=== PATIENT | male | born 1960 | race Caucasian/White ===

== ENCOUNTER 2019-05-24 09:20 | Inpatient (IN) | payer OTHER ==
[2019-05-17 10:32] LABS: ABSOLUTE EOSINOPHILS # (AUTO) 0.1 10^3/uL (0.0-0.6); ABSOLUTE LYMPHOCYTES (AUTO) 1.4 10^3/uL (0.5-4.7); ABSOLUTE MONOCYTES (AUTO) 0.4 10^3/uL (0.1-1.4); ABSOLUTE NEUT (AUTO) 2.7 10^3/uL (1.7-8.2); BASOPHILS % (AUTO) 0.9 % (0-2); EOSINOPHILS % (AUTO) 2.6 % (0-6); HEMATOCRIT 44.5 % (37.9-51.0); HEMOGLOBIN 15.1 g/dL (13.5-17.0); LYMPHOCYTES % (AUTO) 29.2 % (13-45); MEAN CORPUSCULAR HEMOGLOBIN 29.4 pg (27.0-33.4); MEAN CORPUSCULAR HGB CONC 33.9 g/dL (32.0-36.0); MEAN CORPUSCULAR VOLUME 87 fl (80-97); MONOCYTES % (AUTO) 9.4 % (3-13); PLATELET COUNT 238 10^3/uL (150-450); RED BLOOD COUNT 5.14 10^6/uL (4.35-5.55); RED CELL DISTRIBUTION WIDTH 13.7 % (11.5-14.0); SEGMENTED NEUTROPHILS % (AUTO) 57.9 % (42-78); TOTAL CELLS COUNTED % (AUTO) 100 %; WHITE BLOOD COUNT 4.6 10^3/uL (4.0-10.5)
[2019-05-17 11:01] LABS: ANION GAP 10 (5-19); BLOOD UREA NITROGEN 15 mg/dL (7-20); CALCIUM 9.5 mg/dL (8.4-10.2); CARBON DIOXIDE 26 mmol/L (22-30); CHLORIDE 105 mmol/L (98-107); GLUCOSE 134 mg/dL (75-110); POTASSIUM 4.5 mmol/L (3.6-5.0)
--- NOTE | 2019-05-18 18:42 | EKG REPORT ---
SEVERITY:- NORMAL ECG - SINUS RHYTHM : Confirmed by: Oumar Ramirez MD 18-May-2019 18:42:21
[~2019-05-24 09:20] MED LIST: CEFAZOLIN 1 GM/D5W RTU 1 GM/50 ML RTUPB IV PRN; LACTATED RINGERS 1000 ML IV PRN; LIDOCAINE 0.5% INJ-PF (5 MG/ML) 50 ML SDV SUBCUT PRN; METRONIDAZOLE 500 MG/NS RTU 500 MG/100 ML RTUPB IV PRN
[2019-05-24] MEDS ORDERED: SUCCINYLCHOLINE CHLORIDE INJ 200 MG/10 ML VIAL ONE (09:34)
[2019-05-24] MEDS ORDERED: ROCURONIUM BROMIDE INJ 50 MG/5 ML VIAL IV ONE (09:34)
[2019-05-24] MEDS ORDERED: LIDOCAINE 2% INJ-PF (20 MG/ML) 2 ML AMPUL ONE (09:34)
[2019-05-24] MEDS ORDERED: CEFAZOLIN 1 GM/D5W RTU 0 GM/0 ML RTUPB IV ONE (12:21)
[2019-05-24] MEDS ORDERED: METRONIDAZOLE 500 MG/NS RTU 500 MG/100 ML RTUPB IV ONE (12:21)
[2019-05-24] MEDS ORDERED: CEFAZOLIN INJ 1 GM VIAL ONE (12:22)
[2019-05-24] MEDS ORDERED: MORPHINE SULFATE 10 MG/ML INJ ONE (14:29)
[2019-05-24] MEDS ORDERED: FENTANYL CITRATE INJ/PF 250 MCG/5 ML AMPULE ONE (14:29)
[2019-05-24] MEDS ORDERED: MIDAZOLAM 2 MG/2 ML INJ ONE (14:29)
[2019-05-24] MEDS ORDERED: PROPOFOL INJ 200 MG/20 ML VIAL IV ONE ×2 (14:30→15:16)
[2019-05-24] MEDS ORDERED: BUPIVACAINE HCL 0.25% /EPINEPHRINE INJ/PF 30 ML SDV ONE (14:33)
[2019-05-24] MEDS ORDERED: CEFAZOLIN 1 GM/D5W RTU 1 GM/50 ML RTUPB IV ONE (15:00)
[2019-05-24] MEDS ORDERED: ESMOLOL HCL INJ/PF 100 MG/10 ML SDV IV ONE ×2 (15:21→18:17)
[2019-05-24] MEDS ORDERED: EPHEDRINE SULFATE INJ 50 MG/1 ML AMPULE ONE (16:05)
[2019-05-24] MEDS ORDERED: SUGAMMADEX SODIUM 200 MG/2 ML SDV IV ONE (17:13)
[2019-05-24] MEDS ORDERED: PROMETHAZINE HCL INJ 25 MG/1 ML VIAL IV PRN ×2 (17:33)
[2019-05-24] MEDS ORDERED: MEPERIDINE HCL/PF INJ 25 MG/1 ML DISP.SYRIN IV PRN (17:33)
[2019-05-24] MEDS ORDERED: DIPHENHYDRAMINE HCL 50 MG/ML VIAL IV PRN (17:33)
[2019-05-24] MEDS ORDERED: FENTANYL CITRATE INJ/PF 100 MCG/2 ML AMPUL IV PRN ×3 (17:33)
[2019-05-24] MEDS ORDERED: ONDANSETRON HCL INJ/PF 4 MG/2 ML SDV IV PRN (17:33)
--- NOTE | 2019-05-24 17:47 | Operative Report ---
Nonrecallable Operative Report DATE OF SURGERY: 05/24/19 PREOPERATIVE DIAGNOSIS: right colon polyp POSTOPERATIVE DIAGNOSIS: rt colon polyp OPERATION: rt hemicolectomy, laparoscopic SURGEON: LUCILLE LE 1ST S[employer]IOR [employer] SPECIALIST: VIOLETA CHAPIN ANESTHESIA: GA TISSUE REMOVED OR ALTERED: rt colon COMPLICATIONS: none ESTIMATED BLOOD LOSS: 50cc INTRAOPERATIVE FINDINGS: see dictation PROCEDURE: see dictation
[2019-05-24] MEDS ORDERED: DEXAMETHASONE SOD PHOS INJ 10 MG/1 ML VIAL ONE (18:10)
[2019-05-24] MEDS ORDERED: ONDANSETRON HCL INJ/PF 4 MG/2 ML SDV ONE (18:10)
[2019-05-24] MEDS ORDERED: HYDROMORPHONE HCL INJ/PF 2 MG/ML AMPULE ONE (18:25)
[2019-05-24] MEDS ORDERED: FENTANYL CITRATE INJ/PF 100 MCG/2 ML AMPUL ONE (18:25)
--- NOTE | 2019-05-24 19:20 | OPERATIVE REPORT E ---
Operative Report NAME: SHELTON ALTAMIRANO : 1960 AGE: 58Y DATE OF SURGERY: 05/24/2019 ROOM: OR PREOPERATIVE DIAGNOSIS: RIGHT COLONIC SESSILE POLYP. POSTOPERATIVE DIAGNOSIS: RIGHT COLONIC SESSILE POLYP. OPERATION: Laparoscopic-assisted right hemicolectomy. SURGEON: LUCILLE LE M.D. PRINTED CIRCUIT BOARD LAYOUT DESIGNER: Karen *------*, who was present for the entire case, for wound retraction and wound closure. PROCEDURE: Patient was brought to the operating room, awake, alert, in stable condition. Placed on the operating table in supine position. Induced under general anesthesia, intubated. The abdomen was prepped and draped in the usual sterile manner for the procedure. A Veress needle was placed into the umbilicus and the abdomen was insufflated with 6 liters of CO2 gas. A supraumbilical 10-mm incision was made with a 15 blade and a 10-mm port placed in the abdominal cavity. Intraabdominal visualization revealed no evidence of a Veress needle or trocar injury. A left lower quadrant 10-mm port placed under direct vision and a left-sided 5-mm port, all under direct vision. The cecum was identified. It was placed on traction. The appendix was identified. The peritoneal attachments between the terminal ileum, appendix and cecum were taken down with a LigaSure device. Then we came up along the ascending colon, along the peritoneal reflection with the LigaSure device, all the way to the hepatic flexure. Once this was accomplished, we mobilized the proximal transverse colon away from the omentum with the LigaSure device to free up the hepatic flexure and proximal transverse colon. Once this was accomplished and we had good mobilization of the right colon and hepatic flexure, we identified the duodenum and made sure that there was no injury to that. We then removed the LigaSure device and made a transverse incision in the right mid abdominal wall with a 15 blade, and carried out dissection out through subcutaneous tissue with Bovie cautery. The transversalis muscle and rectus fascia were divided with Bovie cautery and we used the Clifford wound protector placed into the abdominal cavity. Once the Clifford wound protector was placed, we were able to deliver the cecum and ascending colon to the wound. We came across the distal ileum with 1 firing of the TRACY stapler with a blue load. Then we came across the mesentery with multiple firings of the LigaSure device all the way past the hepatic flexure to the proximal transverse colon. We then were able to remove the specimen. We approximated the proximal transverse colon to the terminal ileum and created an ileocolostomy anastomosis using sewn technique. The outer layer was interrupted 2-0 silk and the running inner layer was 3-0 Vicryl and the anterior layer was interrupted 2-0 silk. We then reapproximated the mesenteric defect with [id number] placed 2-0 silk. We allowed the specimen to drop back into the abdominal cavity and removed the Clifford wound protector. We closed the posterior sheath with a running 0 Vicryl and the anterior sheath was closed with interrupted 0 Vicryl. Once this was accomplished, we irrigated the wound with sterile saline and suctioned dry. I then reinsufflated the abdominal cavity and identified the ileum and identified our anastomosis as well as our mesentery repair. It was intact. The anastomosis was not twisted and looked secure. We irrigated the right upper quadrant with normal saline, suctioned dry. Reduced the pneumoperitoneum. We then proceeded to close the 10-mm fascial defects at the umbilical port site and the left lower quadrant with 0 Vicryl, and then closed all skin incisions with intracuticular 4-0 Biosyn. Steri-Strips completed the procedure. Estimated blood loss was less than 50 mL. Sponge and needle counts correct x2. The patient was awakened in the operating room, extubated and transferred to recovery in stable condition. No complications. DICTATING PHYSICIAN: LUCILLE LE M.D. [id number] PHY#: [id number] ID: [id number] JOB#: [id number] ACCT: [id number] cc:LUCILLE LE M.D. >
[2019-05-24] MEDS: MORPHINE SULFATE 10 MG/ML INJ IV PRN (20:13)
[2019-05-24] MEDS: HEPARIN SOD (PORCINE) 5,000 UNIT/ML 1 ML VIAL SUBCUT SCH (21:24)
[2019-05-24] MEDS: FAMOTIDINE INJ/PF 20 MG/2 ML SDV IV SCH (21:28)
[2019-05-24] MEDS: POTASSI CL 20 MEQ/D5-1/2NS 1L 1,000 ML IV PRN (21:29)
[2019-05-25] MEDS: MORPHINE SULFATE 10 MG/ML INJ IV PRN ×3 (04:39→18:42)
[2019-05-25] MEDS: ONDANSETRON HCL INJ/PF 4 MG/2 ML SDV IV PRN ×3 (04:46→18:41)
[2019-05-25 05:17] LABS: HEMATOCRIT 42.9 % (37.9-51.0); HEMOGLOBIN 14.1 g/dL (13.5-17.0); MEAN CORPUSCULAR HEMOGLOBIN 28.9 pg (27.0-33.4); MEAN CORPUSCULAR HGB CONC 32.9 g/dL (32.0-36.0); MEAN CORPUSCULAR VOLUME 88 fl (80-97); PLATELET COUNT 228 10^3/uL (150-450); RED BLOOD COUNT 4.89 10^6/uL (4.35-5.55); RED CELL DISTRIBUTION WIDTH 13.8 % (11.5-14.0); WHITE BLOOD COUNT 11.6 10^3/uL (4.0-10.5)
[2019-05-25 05:31] LABS: ANION GAP 10 (5-19); BLOOD UREA NITROGEN 14 mg/dL (7-20); CARBON DIOXIDE 24 mmol/L (22-30); CHLORIDE 103 mmol/L (98-107); GLUCOSE 229 mg/dL (75-110); POTASSIUM 4.8 mmol/L (3.6-5.0)
[2019-05-25 05:54] LABS: ABSOLUTE LYMPHOCYTES# (MANUAL) 0.9 10^3/uL (0.5-4.7); ABSOLUTE MONOCYTES # (MANUAL) 0.5 10^3/uL (0.1-1.4); BAND NEUTROPHILS % (MANUAL) 2 % (3-5); BASOPHILS % (MANUAL) 0 % (0-2); EOSINOPHILS % (MANUAL) 0 % (0-6); LYMPHOCYTES % (MANUAL) 8 % (13-45); MONOCYTES % (MANUAL) 4 % (3-13); RBC MORPHOLOGY COMMENT NORMO-CYTIC/CHROMIC; SEGMENTED NEUTROPHILS % (MAN) 86 % (42-78); TOTAL CELLS COUNTED 100
[2019-05-25 05:55] LABS: PLATELET COMMENT ADEQUATE
[2019-05-25] MEDS: HEPARIN SOD (PORCINE) 5,000 UNIT/ML 1 ML VIAL SUBCUT SCH ×3 (05:57→22:42)
[2019-05-25] MEDS: POTASSI CL 20 MEQ/D5-1/2NS 1L 1,000 ML IV PRN ×2 (05:57→16:46)
--- NOTE | 2019-05-25 07:51 | PDOC PROGRESS REPORT ---
Subjective Progress Note for:: 05/25/19 Reason For Visit: RIGHT COLONIC MASS Physical Exam Vital Signs: Temp Pulse Resp BP Pulse Ox 97.6 F 77 17 157/83 H 96 05/25/19 02:58 05/25/19 02:58 05/25/19 02:58 05/25/19 02:58 05/25/19 02:58 Intake & Output 05/24/19 05/25/19 05/26/19 06:59 06:59 06:59 Intake Total 3650 Output Total 1100 Balance 2550 Weight 113 kg General appearance: PRESENT: no acute distress Head exam: PRESENT: normocephalic Eye exam: PRESENT: EOMI Mouth exam: PRESENT: moist Neck exam: PRESENT: full ROM Respiratory exam: PRESENT: unlabored Cardiovascular exam: PRESENT: RRR Pulses: PRESENT: +2 pedal pulses bilateral GI/Abdominal exam: PRESENT: soft Rectal exam: PRESENT: deferred Extremities exam: PRESENT: full ROM Musculoskeletal exam: PRESENT: full ROM Neurological exam: PRESENT: alert, awake, oriented to person, oriented to place Psychiatric exam: PRESENT: agitated, appropriate affect Skin exam: PRESENT: dry Results Laboratory Results: 05/25/19 04:23 05/25/19 04:23 05/25/19 05/25/19 04:23 04:23 WBC 11.6 H RBC 4.89 Hgb 14.1 Hct 42.9 MCV 88 MCH 28.9 MCHC 32.9 RDW 13.8 Plt Count 228 Seg Neutrophils % Not Reportable Lymphocytes % Not Reportable Monocytes % Not Reportable Eosinophils % Not Reportable Basophils % Not Reportable Absolute Neutrophils Not Reportable Absolute Lymphocytes Not Reportable Absolute Monocytes Not Reportable Absolute Eosinophils Not Reportable Absolute Basophils Not Reportable Sodium 136.9 L Potassium 4.8 Chloride 103 Carbon Dioxide 24 Anion Gap 10 BUN 14 Creatinine 1.25 Est GFR ( Amer) > 60 Est GFR (Non-Af Amer) > 60 Glucose 229 H Calcium 9.0 Assessment & Plan - Plan Summary Plan Summary: s/p lap rt hemicolectomy 'this am doing well no complaints swallowing well no resp issues plan due to difficult intubation, will order ct of the neck per anesthesia request. cont clear liquids.
--- NOTE | 2019-05-25 09:40 | RADIOLOGY REPORT (SQ) ---
EXAM DESCRIPTION: CT SOFT TISSUE NECK WITHOUT COMPLETED DATE/TIME: 05/25/2019 9:25 am REASON FOR STUDY: difficult intubation D12.0 BENIGN NEOPLASM OF CECUM COMPARISON: None. TECHNIQUE: Noncontrast scanning from skull base through lung apices with review of bone, soft tissue and lung windows. Reconstructed coronal and sagittal MPR images reviewed. All images stored on PAC S. All CT scanners at this facility use dose modulation, iterative reconstruction, and/or weight based d osing when appropriate to reduce radiation dose to as low as reasonably achievable (ALARA). [facility]: Dose Right [facility]: CareDose [facility]: Dose Right [facility]: Teradose 4D [facility]: Swag Of The Month RADIATION DOSE: mGy. LIMITATIONS: None. FINDINGS: SKULL BASE: Intact. MAJOR SALIVARY GLANDS: No solid or cystic masses. No inflammatory changes. LYMPHADENOPATHY: There are scattered small cervical nodes most likely reactive. MUCOSAL MASSES OR ASYMMETRY: No mucosal masses or asymmetry. LARYNX/CORDS: No abnormal findings. LUNG APICES: Clear. BONES: Intact. THYROID: Normal size. No masses. PARANASAL SINUSES: Clear. OTHER: No other significant finding. IMPRESSION: NO SIGNIFICANT FINDING IN THE SOFT TISSUES OF THE NECK. TECHNICAL DOCUMENTATION: JOB ID: [id number] Quality ID # [id number]: Final reports with documentation of one or more dose reduction techniques (e.g., Au tomated exposure control, adjustment of the mA and/or kV according to patient size, use of iterative reconstruction technique) 2010 [employer]- All Rights Reserved Reading location - IP/workstation name: [email or web address]
[2019-05-25] MEDS: FAMOTIDINE INJ/PF 20 MG/2 ML SDV IV SCH ×2 (09:49→22:42)
[2019-05-26] MEDS: MORPHINE SULFATE 10 MG/ML INJ IV PRN ×3 (00:02→19:58)
[2019-05-26] MEDS: ONDANSETRON HCL INJ/PF 4 MG/2 ML SDV IV PRN ×3 (00:09→19:58)
[2019-05-26] MEDS: POTASSI CL 20 MEQ/D5-1/2NS 1L 1,000 ML IV PRN (00:10)
[2019-05-26] MEDS: HEPARIN SOD (PORCINE) 5,000 UNIT/ML 1 ML VIAL SUBCUT SCH ×2 (05:10→14:00)
--- NOTE | 2019-05-26 07:58 | PDOC PROGRESS REPORT ---
Subjective Progress Note for:: 05/26/19 Subjective:: feels ok, no flatus Reason For Visit: RIGHT COLONIC MASS Physical Exam Vital Signs: Temp Pulse Resp BP Pulse Ox 98.6 F 83 20 130/77 H 94 05/25/19 23:43 05/25/19 23:43 05/25/19 23:43 05/25/19 23:43 05/25/19 23:43 Intake & Output 05/25/19 05/26/19 05/27/19 06:59 06:59 06:59 Intake Total 3650 6110 Output Total 1100 5070 Balance 2550 1040 Weight 113 kg 114.8 kg General appearance: PRESENT: no acute distress Head exam: PRESENT: normocephalic Eye exam: PRESENT: EOMI Mouth exam: PRESENT: moist Neck exam: PRESENT: full ROM Respiratory exam: PRESENT: clear to auscultation kristina Cardiovascular exam: PRESENT: RRR GI/Abdominal exam: PRESENT: hypoactive bowel sounds, soft Rectal exam: PRESENT: deferred Extremities exam: PRESENT: full ROM Musculoskeletal exam: PRESENT: full ROM Neurological exam: PRESENT: alert, awake, oriented to person, oriented to place Psychiatric exam: PRESENT: appropriate affect Skin exam: PRESENT: dry Results Laboratory Results: 05/25/19 04:23 05/25/19 04:23 Impressions: Soft Tissue Neck CT 05/25/19 00:00 IMPRESSION: NO SIGNIFICANT FINDING IN THE SOFT TISSUES OF THE NECK. Assessment & Plan - Plan Summary Plan Summary: s/p right hemicolectomy doing ok awaitig for return of bowel function will cont clear liquids.
[2019-05-26] MEDS: FAMOTIDINE INJ/PF 20 MG/2 ML SDV IV SCH ×2 (11:10→21:20)
[2019-05-26] MEDS: DEXTROSE 5%-1/2 NORMAL SALINE 1,000 ML IV PRN ×2 (11:22→21:31)
[2019-05-27] MEDS: HEPARIN SOD (PORCINE) 5,000 UNIT/ML 1 ML VIAL SUBCUT SCH ×3 (05:03→21:14)
[2019-05-27] MEDS: DEXTROSE 5%-1/2 NORMAL SALINE 1,000 ML IV PRN ×2 (09:09→21:21)
[2019-05-27] MEDS: FAMOTIDINE INJ/PF 20 MG/2 ML SDV IV SCH ×2 (09:09→21:20)
[2019-05-27] MEDS ORDERED: ONDANSETRON HCL INJ/PF 4 MG/2 ML SDV IV PRN (09:30)
[2019-05-27] MEDS ORDERED: MORPHINE SULFATE 10 MG/ML INJ IV PRN (09:30)
[2019-05-27] MEDS ORDERED: OXYCODONE HCL IR 5 MG TABLET PO PRN (10:51)
[2019-05-27] MEDS ORDERED: OXYCODONE-ACETAMINOPHEN 5-325 MG TABLET PO PRN (10:51)
--- NOTE | 2019-05-27 11:20 | PDOC PROGRESS REPORT ---
Subjective Progress Note for:: 05/27/19 Subjective:: feels ok, passing flatus Reason For Visit: RIGHT COLONIC MASS Physical Exam Vital Signs: Temp Pulse Resp BP Pulse Ox 98.7 F 74 15 169/83 H 94 05/27/19 08:13 05/27/19 08:13 05/27/19 08:13 05/27/19 08:13 05/27/19 08:13 Intake & Output 05/26/19 05/27/19 05/28/19 06:59 06:59 06:59 Intake Total 6110 5007 1000 Output Total 5070 5000 Balance 1040 7 1000 Weight 114.8 kg 117.2 kg General appearance: PRESENT: no acute distress Head exam: PRESENT: normocephalic Eye exam: PRESENT: EOMI Mouth exam: PRESENT: moist Neck exam: PRESENT: full ROM Respiratory exam: PRESENT: clear to auscultation kristina Cardiovascular exam: PRESENT: RRR Pulses: PRESENT: +2 pedal pulses bilateral GI/Abdominal exam: PRESENT: soft Rectal exam: PRESENT: deferred Extremities exam: PRESENT: full ROM Musculoskeletal exam: PRESENT: full ROM Neurological exam: PRESENT: alert, awake, oriented to person Psychiatric exam: PRESENT: appropriate affect Focused psych exam: PRESENT: other Skin exam: PRESENT: dry Results Laboratory Results: 05/25/19 04:23 05/25/19 04:23 Impressions: Soft Tissue Neck CT 05/25/19 00:00 IMPRESSION: NO SIGNIFICANT FINDING IN THE SOFT TISSUES OF THE NECK. Assessment & Plan - Plan Summary Plan Summary: afeb vss passing some flatus path discussed will advance to full liqudis./
[2019-05-27] MEDS: KETOROLAC TROMETHAMINE INJ/PF 30 MG/1 ML SDV IV SCH ×2 (12:28→18:38)
[2019-05-28] MEDS: KETOROLAC TROMETHAMINE INJ/PF 30 MG/1 ML SDV IV SCH ×2 (00:13→06:10)
[2019-05-28] MEDS: HEPARIN SOD (PORCINE) 5,000 UNIT/ML 1 ML VIAL SUBCUT SCH (05:05)
[2019-05-28 08:58] VITALS: BP 152/94
--- NOTE | 2019-05-28 13:35 | DISCHARGE SUMMARY E ---
Discharge Summary NAME: SHELTON ALTAMIRANO : 1960 AGE: 58Y ADMITTED: 05/24/2019 DISCHARGED: 05/28/2019 The patient was discharged from room 533. ADMISSION DIAGNOSIS: Right cecal mass. DISCHARGE DIAGNOSIS: Right cecal mass. OPERATIVE PROCEDURE: Laparoscopic right hemicolectomy. SURGEON: Tarik Le M.D. REASON FOR HOSPITALIZATION/HOSPITAL COURSE: This is a 58-year-old male who underwent a screening colonoscopy as an outpatient by GI physician who noted that he had a cecal mass and could not be removed endoscopically. He was therefore referred for surgery. He was admitted on the day of admission for a laparoscopic right hemicolectomy, which he underwent and tolerated well. Postoperatively, he had a routine benign postop course. He was started on a clear liquid diet on hospital day one, which was slowly advanced to a soft diet by the time of discharge. During his hospital course, he had normal resolution of bowel function, and at the time of discharge, he is now tolerating a soft diet, having normal bowel movements, his wound is clean and dry, and he is ready for discharge home. He will be given Toradol 10 mg tablets for pain as well as tramadol 50 mg tablets for pain. He will resume his own medications at home. He is instructed not to lift anything greater than 5-10 pounds for the next 4-6 weeks, and he will be given a postop appointment with [facility] for a wound check in 7-10 days. DISCHARGE DIAGNOSIS: Right cecal polyp. DICTATING PHYSICIAN: TARIK LE M.D. [id number] PHY#: [id number] ID: [id number] JOB#: [id number] ACCT: [id number] cc:TARIK LE M.D. >
== END 2019-05-28 10:54 | disposition home or self-care (01) | DRG 331 ==
LOC: INOR 12:43 → INTOOBSV 12:43 → UNDOADMIN 12:43 → EDSTATUS 12:45 → OBSVTOIN 17:49 → 5 19:18
PROVIDERS: ADMIT Surgery; ATTEND Surgery
PROC: 0D1B4ZL Bypass Ileum to Transverse Colon, Percutaneous Endoscopic Approach (ICD-10-PCS; 2019-05-24)
PROC: 5A09357 Assistance with Respiratory Ventilation, Less than 24 Consecutive Hours, Continuous Positive Airway Pressure (ICD-10-PCS; 2019-05-24)
PROC: 0DTF4ZZ Resection of Right Large Intestine, Percutaneous Endoscopic Approach (ICD-10-PCS; principal; 2019-05-24 14:45)
DX: D12.0 Benign neoplasm of cecum (principal); Z86.010 Personal history of colon polyps; I10 Essential (primary) hypertension; G47.30 Sleep apnea, unspecified; E78.00 Pure hypercholesterolemia, unspecified; Z88.6 Allergy status to analgesic agent; Z90.5 Acquired absence of kidney
CPT/HCPCS: 36415; 70490; 790; 80048; 85025; 88309; 93005; 93010; 94799; J0330; J0690; J1100; J1170; J1644; J1885; J2250; J2270; J2405; J2704; J3010; J3480; J3490; S0028

== ENCOUNTER → 2020-08-04 | Outpatient (CLI) | payer OTHER ==
--- NOTE | 2020-08-04 12:30 | RADIOLOGY REPORT (SQ) ---
EXAM DESCRIPTION: U/S ABDOMEN LIMITED W/O DOP IMAGES COMPLETED DATE/TIME: 08/04/2020 11:56 am REASON FOR STUDY: R94.5 ABNORMAL RESULTS OF LIVER FUNCTION STUDIES R94.5 ABNORMAL RESULTS OF LIVER FUNCTION STUDIES COMPARISON: None. TECHNIQUE: Dynamic and static grayscale images acquired of the abdomen and recorded on PACS. Additio nal selected color Doppler and spectral images recorded. LIMITATIONS: None. FINDINGS: PANCREAS: Poorly seen. No mass in the head of the pancreas. LIVER: Increased echogenicity. Hepatomegaly. LIVER VASCULATURE: Normal directional flow of the main portal vein and hepatic veins. GALLBLADDER: No stones. Normal wall thickness. No pericholecystic fluid. ULTRASOUND-DETECTED ANAND'S SIGN: Negative. INTRAHEPATIC DUCTS AND COMMON DUCT: CBD and intrahepatic ducts normal caliber. No filling defects. AORTA: No aneurysm. RIGHT KIDNEY: Normal size, 13.8 cm. Normal echogenicity. 4.3 cm lower pole cyst. No solid or suspi cious masses. No hydronephrosis. No calcifications. PERITONEAL AND RIGHT PLEURAL SPACE: No ascites or effusions. OTHER: No other significant findings. IMPRESSION: Hepatomegaly. Hepatic steatosis. TECHNICAL DOCUMENTATION: JOB ID: [id number] 2010 [employer]- All Rights Reserved Reading location - IP/workstation name: [email or web address]
== END ==
LOC: RAD 11:27
PROVIDERS: ATTEND Internal Medicine Gastroenterology
DX: R94.5 Abnormal results of liver function studies (principal); K76.0 Fatty (change of) liver, not elsewhere classified; R16.0 Hepatomegaly, not elsewhere classified
CPT/HCPCS: 76705